=== PATIENT | female | born 1980 | race Caucasian/White ===

== ENCOUNTER 2016-12-11 19:18 | Emergency (ER) | payer MEDICAID, OTHER ==
[2016-12-11 19:29] VITALS: BP 106/71
--- NOTE | 2016-12-11 20:25 | RAD ---
Indication: Right-sided neck pain. 5 views of the cervical spine demonstrates straightening of the normal lordosis. No prevertebral soft tissue swelling is noted. Spinal canal appears to be intact. All the intervertebral foramen appear patent. IMPRESSION: No fracture of the cervical spine is noted.
[2016-12-11] MEDS ORDERED: Cyclobenzaprine TAB* 10 MG PO ONE (20:30)
--- NOTE | 2016-12-11 20:50 | UC ---
Neck Pain HPI - HPI Summary HPI Summary: WENT TO [facility] TODAY AND HAD NECK ADJUSTMENT; PAIN TENDERNESS AND SWELLING IN RIGHT NECK. NO LOC. NO LOSS OF CONTROL OF BLADDER OR BOWELS. NO NUMBNESS OR TINGLING - History of Current Complaint Chief Complaint: UCUpperExtremity Stated Complaint: NECK AND SHOULDER PAIN Time Seen by Provider: 12/11/16 19:28 Hx Obtained From: Patient Mechanism Of Injury: Blunt Trauma Onset/Duration: Sudden Onset, Lasting Hours, Still Present Severity: Moderate Location: Discrete At: - RIGHT PARASPINAL MUSCLES OF C-SPINE Character: Dull, Aching, Stiff, Spasmotic Aggravating Factors: Nothing Alleviating Factors: Nothing Associated Signs & Symptoms: Positive: Negative - Risk Factors Meningitis Risk Factors: Negative - Allergies/Home Medications Allergies/Adverse Reactions: Allergies Allergy/AdvReac Type Severity Reaction Status Date / Time Benzoyl Peroxide Allergy Intermediate Hives Verified 07/11/15 12:44 [place] [facility] Allergy Intermediate serotonin Verified 07/11/15 12:44 [From Vyvanse] syndrome Dexamethasone Allergy Intermediate fluid Verified 07/11/15 12:44 swelling tissue all over Lisdexamfetamine Allergy Intermediate serotonin Verified 07/11/15 12:44 [From Vyvanse] syndrome Penicillins Allergy Intermediate Hives Verified 07/11/15 12:44 Red Dye [From Vyvanse] Allergy Intermediate serotonin Verified 07/11/15 12:44 syndrome Sertraline [From Zoloft] Allergy Intermediate suicidal Verified 07/11/15 12:44 ideation Yellow Dye [From Vyvanse] Allergy Intermediate serotonin Verified 07/11/15 12:44 syndrome PMH/Surg Hx/FS Hx/Imm Hx Previously Healthy: Yes - Surgical History Surgical History: None - Family History Known Family History: Positive: Hypertension - Social History Occupation: Employed Full-time Lives: With Family Alcohol Use: Occasionally Substance Use Type: None Smoking Status (MU): Never Smoked Tobacco Review Of Systems Constitutional: Positive: Negative Skin: Positive: Negative Eyes: Positive: Negative ENT: Positive: Negative Respiratory: Positive: Negative Cardiovascular: Positive: Negative Gastrointestinal: Positive: Negative Genitourinary: Positive: Negative Musculoskeletal: Positive: Arthralgia, Myalgia Neurological: Positive: Negative Psychological: Positive: Negative All Other Systems Reviewed And Are Negative: Yes Physical Exam Triage Information Reviewed: Yes Appearance: Well-Appearing, No Pain Distress, Well-Nourished Vital Signs: Initial Vital Signs Temp 98.3 F 12/11/16 19:26 Pulse 86 12/11/16 19:26 Resp 18 12/11/16 19:26 BP 106/71 12/11/16 19:26 Pulse Ox 100 12/11/16 19:26 Vital Signs Reviewed: Yes Eye Exam: Normal ENT Exam: Normal ENT: Positive: Normal ENT inspection, Hearing grossly normal, Pharynx normal, TMs normal Dental Exam: Normal Neck exam: Normal Neck: Positive: Supple, Nontender, No Lymphadenopathy Respiratory Exam: Normal Respiratory: Positive: Chest non-tender, Lungs clear, Normal breath sounds, No respiratory distress, No accessory muscle use Cardiovascular Exam: Normal Cardiovascular: Positive: RRR, No Murmur, Pulses Normal Abdominal Exam: Normal Abdomen Description: Positive: Nontender, No Organomegaly Musculoskeletal Exam: Normal - RIGHT PARASPINAL MM Musculoskeletal: Positive: Strength Intact, ROM Intact, Edema @, Other: - RIGHT PARASPINAL MUSCLES Neurological Exam: Normal Neurological: Positive: Alert, Muscle Tone Normal Psychological Exam: Normal Psychological: Positive: Normal Response To Family Skin Exam: Normal Skin: Positive: rashes, breakdown Neck Pain Course/Dx - Differential Dx/Diagnosis Differential Dx/HQI/PQRI: Sprain, Strain Provider Diagnoses: CERVICAL STRAIN/SPRAIN Discharge - Discharge Plan Condition: Stable Disposition: HOME Prescriptions: Cyclobenzaprine TAB* [Flexeril 10 MG TAB*] 10 mg PO TID PRN #9 tab PRN Reason: Spasms Patient Education Materials: Cervical Sprain (ED) Referrals: [facility] [Outside] Usha WOODS,Ricki Aranda [Primary Care Provider] - Additional Instructions: PHYSICAL THERAPY REFERRAL: You have been prescribed physical therapy. Treatments may include stretching, exercise, application of heat or cold, and other modalities. After an injury, PT can reduce swelling and pain. In recovery, PT is used to restore mobility and strength. Your specific treatment goals are: ___X__ Reduction of Swelling (EGS, US, ice as needed) ___X__ Pain Reduction (EGS, US, ice as needed) TENS Pack Fitting and Instruction Wound Hydrotherapy ___X__ Preservation of Mobility ___X__ Alevism of Mobility ___X__ Strength Alevism ___X__ Work or Sports Hardening This instruction sheet also serves as your PHYSICAL THERAPY REFERRAL! Please take it with you to the therapist, so he/she will be aware of your diagnosis and treatment plan. You may see the physical therapist of your choice for these treatments, but may wish to check with your insurance to be sure the provider you select is covered. It's important to see the doctor to whom you have been referred for follow up.
== END 2016-12-11 20:52 | disposition home or self-care (01) ==
LOC: UCEAST 19:18
DX: S16.1XXA Strain of muscle, fascia and tendon at neck level, initial encounter (principal); X58.XXXA Exposure to other specified factors, initial encounter; Y93.9 Activity, unspecified; Y92.9 Unspecified place or not applicable; Z88.0 Allergy status to penicillin
CPT/HCPCS: 72050; 99212; A9270-GY; G0463

== ENCOUNTER 2018-03-10 18:10 | Inpatient (IN) | payer MEDICAID, OTHER ==
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
[2018-03-10 19:47] LABS: ABS Basophils 0 10^3/ul (0-0.2); ABS Eosinophils 0.2 10^3/ul (0-0.6); ABS Lymphocytes 1.4 10^3/ul (1.0-4.8); ABS Monocytes 0.5 10^3/ul (0-0.8); ABS Neutrophils 2.8 10^3/ul (1.5-7.7); ABS Nucleated RBC 0 10^3/ul; Eosinophil % 4.4 %; Hematocrit 39 % (35-47); Hemoglobin 13.1 g/dl (12.0-16.0); Lymphocyte % 28.9 %; Mean Corpuscular HGB Conc 34 g/dl (31-36); Mean Corpuscular Hemoglobin 33 pg (27-31); Mean Corpuscular Volume 97 fL (80-97); Mean Platelet Volume 7.7 fL (7.4-10.4); Nucleated Red Blood Cells % 0; Platelet Count 232 10^3/ul (150-450); Red Blood Count 3.98 10^6/ul (4.00-5.40); Red Cell Distribution Width 13 % (10.5-15)
[2018-03-10 20:01] LABS: Urine Appearance Clear; Urine Blood Negative (Negative); Urine Color Yellow; Urine Ketones Negative (Negative); Urine Protein Negative (Negative); Urine Specific Gravity 1.017 (1.010-1.030); Urine Urobilinogen Negative (Negative)
[2018-03-10 20:07] LABS: EGFR Non-African American 83.1 (>60)
[2018-03-10] MEDS ORDERED: LORazepam TAB(*) 1 MG PO ONE (21:01)
[2018-03-10] MEDS ORDERED: clonazePAM TAB(*) 0.5 MG PO ONE (21:01)
[2018-03-10] MEDS ORDERED: diPHENhydraMINE PO* 25 MG ONE (21:07)
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
[2018-03-11] MEDS ORDERED: Ondansetron TAB* 4 MG PO PRN (03:07)
[2018-03-11] MEDS ORDERED: clonazePAM TAB(*) 0.5 MG PO PRN (03:07)
[2018-03-11] MEDS ORDERED: LORazepam TAB(*) 0.5 MG PO PRN (03:07)
[2018-03-11] MEDS ORDERED: Cyclobenzaprine TAB* 10 MG PO PRN (03:07)
[2018-03-11] MEDS ORDERED: Al Hydrox/Mg Hydrox/Simet LIQ* 30 ML UDC PO PRN (04:04)
[2018-03-11] MEDS ORDERED: Acetaminophen TAB* 325 MG PO PRN (04:04)
[2018-03-11] MEDS ORDERED: HYDROQUINONE TOPICAL PRN (06:41)
[2018-03-11] MEDS ORDERED: DULoxetine DR CAP* 30 MG CAP.DR PO SCH (09:00)
[2018-03-11] MEDS ORDERED: Gabapentin CAP(*) 100 MG PO SCH (09:00)
[2018-03-11] MEDS ORDERED: lamoTRIgine TAB(*) 25 MG PO SCH (09:00)
[2018-03-11] MEDS ORDERED: Amphetamine/Dextroamph ER(NF) 10 MG CAP.ER PO SCH (09:00)
[2018-03-11] MEDS: Vitamin THERAPEUTIC TAB PO SCH (11:29)
[2018-03-11] MEDS ORDERED: clonazePAM TAB(*) 0.5 MG ONE (14:06)
[2018-03-11] MEDS ORDERED: clonazePAM TAB(*) 0.5 MG PO ONE (16:15)
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
[2018-03-11] MEDS: clonazePAM TAB(*) 1 MG PO SCH (20:06)
[2018-03-11] MEDS: QUEtiapine TAB* 25 MG PO SCH (20:06)
[2018-03-11] MEDS: lamoTRIgine TAB(*) 25 MG PO SCH (20:06)
[2018-03-11] MEDS: hydrOXYzine HCL TAB* 50 MG PO PRN (23:26)
[2018-03-12] MEDS: Venlafaxine EXT RELEASE CAP* 75 MG PO SCH (07:59)
[2018-03-12] MEDS: clonazePAM TAB(*) 1 MG PO SCH ×2 (08:00→20:06)
[2018-03-12] MEDS: Vitamin THERAPEUTIC TAB PO SCH (08:00)
[2018-03-12] MEDS: lamoTRIgine TAB(*) 25 MG PO SCH ×2 (08:00→20:06)
[2018-03-12] MEDS: hydrOXYzine HCL TAB* 50 MG PO PRN ×2 (13:18→22:53)
[2018-03-12] MEDS: Docusate CAP* 100 MG PO SCH (17:39)
[2018-03-12] MEDS: QUEtiapine TAB* 25 MG PO SCH (20:06)
[2018-03-13] MEDS: lamoTRIgine TAB(*) 25 MG PO SCH ×2 (09:12→19:56)
[2018-03-13] MEDS: Docusate CAP* 100 MG PO SCH (09:13)
[2018-03-13] MEDS: Vitamin THERAPEUTIC TAB PO SCH (09:13)
[2018-03-13] MEDS: clonazePAM TAB(*) 1 MG PO SCH ×2 (09:13→19:56)
[2018-03-13] MEDS: Venlafaxine EXT RELEASE CAP* 75 MG PO SCH (09:13)
[2018-03-13] MEDS ORDERED: LORazepam TAB(*) 1 MG ONE (15:28)
--- NOTE | 2018-03-13 19:20 | PN ---
Subjective - Subjective Date of Service: 03/13/18 Service Type: [id number] Hosp care 15 min low complexity Subjective: Kayleigh had a difficult day in the morning due to what appeared to be withdrawals from Benzos/ Amphetanines, requiring stat Lorazepam. Did fine rest of the day. Objective - Appearance Appearance: Healthy Appearing Dysmorphic Features: No Hygiene: Normal Grooming: Well Kept - Behavior Psychomotor Activities: Normal Exhibits Abnormal Movement: No - Attitude and Relatedness Attitude and Relatedness: Appropriate Eye Contact: Good - Speech Quality: Unpressured Latencies: Normal Quantity: Appropriate - Mood Patient's Decription of Mood: "Terrible" - Affect Observed Affect: Tearful Affect Consistent with: Dysphoria - Thought Process Patient's Thought Process: Coherent, Goal Directed Thought Content: No Passive Wish, No Suicidal Planning, No Homicidal Ideation, No Paranoid Ideation - Sensorium Experiencing Hallucinations: No, Sensorium is Clear Type of Hallucinations: Visual: No, Auditory: No, Command: No - Level of Consciousness Level of Consciousness: Alert Orientation: Yes Intact, Yes Orientated to Time, Yes Orientated to Place, Yes Orientated to Person - Impulse Control Impulse Control: Intact - Insight and Judgement Insight and Judgement: Fair - Group Participation Particating in Group Activities: Yes - Medication Management Medication Management Adherence: Yes Assessment - Assessment Merits Inpatient Hospitalization: For Immediate Safety, For Stabilization, For Ongoing Evaluation Clinical Impression: Still symptomatic and withdrawing from Benzos. Plan - Plan Treatment Plan: Name: KAYLEIGH WEST Birthdate: 1980 [id number] Continued Medication Management: Continue Outpt Medication Medications: Current Medications Acetaminophen (Tylenol Tab*) 650 mg PO Q4H PRN PRN Reason: PAIN or TEMP > 101 F Last Admin: 03/13/18 05:19 Dose: 650 mg Al Hydrox/Mg Hydrox/Simethicone (Maalox Plus*) 30 ml PO Q4H PRN PRN Reason: INDIGESTION Clonazepam (Klonopin Tab(*)) 1 mg PO BID [facility] Last Admin: 03/13/18 09:13 Dose: 1 mg Docusate Sodium (Colace Cap*) 100 mg PO DAILY [facility] Last Admin: 03/13/18 09:13 Dose: 100 mg Hydroxyzine HCl (Atarax Tab*) 50 mg PO Q6H PRN PRN Reason: ANXIETY Last Admin: 03/12/18 22:53 Dose: 50 mg Lamotrigine (Lamictal Tab(*)) 50 mg PO BID [facility] Last Admin: 03/13/18 09:12 Dose: 50 mg Multivitamins (Theragran Tab*) 1 tab PO DAILY [facility] Last Admin: 03/13/18 09:13 Dose: 1 tab Pto:Hydroquinone 4% 1 dose TOPICAL DAILY PRN PRN Reason: SKIN CLARITY Ondansetron HCl (Zofran Tab*) 4 mg PO Q8H PRN PRN Reason: NAUSEA/VOMITING Quetiapine Fumarate (Seroquel Tab*) 50 mg PO BEDTIME [facility] Last Admin: 03/12/18 20:06 Dose: 50 mg Venlafaxine HCl (Effexor Xr Cap*) 150 mg PO DAILY [facility] Last Admin: 03/13/18 09:13 Dose: 150 mg - Discharge Plan Discharge Plan: Outpatient Follow Up Outpatient Program: [facility]
[2018-03-13] MEDS: QUEtiapine TAB* 25 MG PO SCH (19:56)
[2018-03-13] MEDS: hydrOXYzine HCL TAB* 50 MG PO PRN (21:32)
[2018-03-14] MEDS: hydrOXYzine HCL TAB* 50 MG PO PRN ×2 (03:55→13:11)
[2018-03-14] MEDS: lamoTRIgine TAB(*) 25 MG PO SCH ×2 (08:46→20:40)
[2018-03-14] MEDS: Venlafaxine EXT RELEASE CAP* 75 MG PO SCH (08:46)
[2018-03-14] MEDS: Docusate CAP* 100 MG PO SCH (08:46)
[2018-03-14] MEDS: Vitamin THERAPEUTIC TAB PO SCH (08:46)
[2018-03-14] MEDS: clonazePAM TAB(*) 1 MG PO SCH ×2 (08:46→20:39)
--- NOTE | 2018-03-14 12:49 | PN ---
Subjective - Subjective Date of Service: 03/14/18 Service Type: [id number] Hosp care 15 min low complexity Subjective: Patient was seen by self, discussed with treatment team, chart was reviewed. Patient has been compliant with her medications, no reported side effects. Patient reports some improvement in her symptoms of anxiety and mood. Patient reports less irritability and less hyperactive. Patient sleeping has been disturbed with middle insomnia and has been doing better with falling a sleep on Seroquel. Patient eating has been fair. Patient has been participating in the milieu and interacting with peers on the unit. Patient has been cooperative with staff and attending selective groups and interested in anger management. Patient behavior has been in control at the hospital but unsure about how if she was to handle some of these distress at home. Patient mood was less anxious and reports improvement in racing thoughts. Patient has been reporting no suicidal or homicidal ideation. No psychotic symptoms of delusions or hallucinations. Objective - Appearance Appearance: Healthy Appearing Dysmorphic Features: No Hygiene: Normal Grooming: Fairly Well Kept - Behavior Psychomotor Activities: Normal Exhibits Abnormal Movement: No - Attitude and Relatedness Attitude and Relatedness: Cooperative Eye Contact: Fair - Speech Quality: Unpressured Latencies: Normal Quantity: Appropriate - Mood Patient's Decription of Mood: "Irritable" - less - Affect Observed Affect: Fair Affect Consistent with: Euthymia - with some anxiety - Thought Process Patient's Thought Process: Coherent Thought Content: No Passive Wish, No Suicidal Planning, No Homicidal Ideation, No Paranoid Ideation - Sensorium Experiencing Hallucinations: No, Sensorium is Clear Type of Hallucinations: Visual: No, Auditory: No, Command: No - Level of Consciousness Level of Consciousness: Alert Orientation: Yes Intact, Yes Orientated to Time, Yes Orientated to Place, Yes Orientated to Person - Impulse Control Impulse Control: Intact - Insight and Judgement Insight and Judgement: Fair - Group Participation Particating in Group Activities: Yes - Medication Management Medication Management Adherence: Yes Assessment - Assessment Merits Inpatient Hospitalization: For Immediate Safety, For Stabilization, For Discharge Planning Inpatient DSM-V Dx: F31.9 Clinical Impression: Still symptomatic and withdrawing from Benzos. MHU: Problem List - Patient Problems (1) Bipolar disorder Current Visit: Yes Status: Acute (2) Anxiety disorder Current Visit: Yes Status: Acute Code(s): F41.9 - ANXIETY DISORDER, UNSPECIFIED SNOMED Code(s): 663933627 (3) Cannabis abuse Current Visit: Yes Status: Acute Code(s): F12.10 - CANNABIS ABUSE, UNCOMPLICATED SNOMED Code(s): 29344844 Plan - Plan Treatment Plan: Name: KAYLEIGH WEST Birthdate: 1980 [id number] - Patient continues to be hospitalized due to recent suicidal thoughts with plan , mood instability, anxiety and impulsivity. - Patient's medications were adjusted after informed consent with increment in Seroquel to help with sleep disturbance and help with augmentation of mood stabilizer. Patient Lamictal will be increased to 100 mg BID from tomorrow night. Patient will continued with Clonazepam 1mg BID for now with plan to down titrate as tolerated in future. Patient to use Hydroxyzine PRN for anxiety. Patient's Effexor XR to be continued at 150 mg PO QAM. - Patient will be monitored for improvement and side effects. Risk and benefits were discussed. - Patient was encouraged to continue his participation in the milieu, group and individual therapy. Medications: Current Medications Acetaminophen (Tylenol Tab*) 650 mg PO Q4H PRN PRN Reason: PAIN or TEMP > 101 F Last Admin: 03/13/18 05:19 Dose: 650 mg Al Hydrox/Mg Hydrox/Simethicone (Maalox Plus*) 30 ml PO Q4H PRN PRN Reason: INDIGESTION Clonazepam (Klonopin Tab(*)) 1 mg PO BID [facility] Last Admin: 03/14/18 08:46 Dose: 1 mg Docusate Sodium (Colace Cap*) 100 mg PO DAILY [facility] Last Admin: 03/14/18 08:46 Dose: 100 mg Hydroxyzine HCl (Atarax Tab*) 50 mg PO Q6H PRN PRN Reason: ANXIETY Last Admin: 03/14/18 03:55 Dose: 50 mg Lamotrigine (Lamictal Tab(*)) 50 mg PO BID [facility] Last Admin: 03/14/18 08:46 Dose: 50 mg Multivitamins (Theragran Tab*) 1 tab PO DAILY [facility] Last Admin: 03/14/18 08:46 Dose: 1 tab Pto:Hydroquinone 4% 1 dose TOPICAL DAILY PRN PRN Reason: SKIN CLARITY Ondansetron HCl (Zofran Tab*) 4 mg PO Q8H PRN PRN Reason: NAUSEA/VOMITING Quetiapine Fumarate (Seroquel Tab*) 100 mg PO BEDTIME [facility] Venlafaxine HCl (Effexor Xr Cap*) 150 mg PO DAILY [facility] Last Admin: 03/14/18 08:46 Dose: 150 mg
[2018-03-14] MEDS ORDERED: QUEtiapine TAB* 100 MG PO SCH (21:00)
[2018-03-14] MEDS ORDERED: Nicotine GUM* 2 MG PO PRN (22:04)
[2018-03-14] MEDS: Nicotine Inhaler* 10 MG AMP INH PRN (22:24)
[2018-03-14] MEDS ORDERED: Mouth Piece, Nicotine* 1 EACH CARTRIDGE INH ONE (23:00)
[2018-03-15] MEDS: hydrOXYzine HCL TAB* 50 MG PO PRN ×3 (02:06→19:57)
[2018-03-15] MEDS: Vitamin THERAPEUTIC TAB PO SCH (09:02)
[2018-03-15] MEDS: clonazePAM TAB(*) 1 MG PO SCH ×2 (09:02→19:01)
[2018-03-15] MEDS: Docusate CAP* 100 MG PO SCH (09:02)
[2018-03-15] MEDS: Venlafaxine EXT RELEASE CAP* 75 MG PO SCH (09:02)
[2018-03-15] MEDS: lamoTRIgine TAB(*) 25 MG PO SCH (09:02)
--- NOTE | 2018-03-15 12:07 | PN ---
Subjective - Subjective Date of Service: 03/15/18 Service Type: [id number] Hosp care 15 min low complexity Subjective: Patient was seen by self, discussed with treatment team, chart was reviewed. Patient has been compliant with her medications, no reported side effects. Patient reports difficulty last evening regulating her emotions and mood when did not get belongings what she requested from her fiance. Patient engaged in self injurious behavior by cutting her wrist with piece of plastic and her observation was switch back to Q15 minutes. Patient's SANDEEP was suggestive of severe anxiety likely related to her PTSD. Patient depression was mild on Oconnell Depression inventory. But reports intense mood instability, which worsened when exposed to an unexpected situation. Patient reports investing time in therapy and groups to learn skills to manage distress and work on mindfulness. Patient reports disturbed sleep last night. Patient eating has been fair. Patient has been participating in the milieu and interacting with peers on the unit. Patient has been cooperative with staff and attending selective groups and interested in anger management. Patient behavior was safe on all checks after that incident. Patient has been reporting no suicidal or homicidal ideation. No psychotic symptoms of delusions or hallucinations. Objective - Appearance Appearance: Healthy Appearing Dysmorphic Features: No Hygiene: Normal Grooming: Fairly Well Kept - Behavior Psychomotor Activities: Normal Exhibits Abnormal Movement: No - Attitude and Relatedness Attitude and Relatedness: Cooperative Eye Contact: Fair - Speech Quality: Unpressured Quantity: Appropriate - Mood Patient's Decription of Mood: "Sad" - Affect Observed Affect: Labile - less Affect Consistent with: Dysphoria - Thought Process Patient's Thought Process: Coherent Thought Content: No Passive Wish, No Suicidal Planning, No Homicidal Ideation, No Paranoid Ideation - Sensorium Experiencing Hallucinations: No, Sensorium is Clear Type of Hallucinations: Visual: No, Auditory: No, Command: No - Level of Consciousness Level of Consciousness: Alert Orientation: Yes Intact, Yes Orientated to Time, Yes Orientated to Place, Yes Orientated to Person - Impulse Control Impulse Control: Poor - as per recent evidence - Insight and Judgement Insight and Judgement: Fair - Group Participation Particating in Group Activities: Yes - Medication Management Medication Management Adherence: Yes Assessment - Assessment Merits Inpatient Hospitalization: For Immediate Safety, For Stabilization, For Discharge Planning Inpatient DSM-V Dx: F31.9 Clinical Impression: Still symptomatic and withdrawing from Benzos. MHU: Problem List - Patient Problems (1) Bipolar disorder Current Visit: Yes Status: Acute (2) Anxiety disorder Current Visit: Yes Status: Acute Code(s): F41.9 - ANXIETY DISORDER, UNSPECIFIED SNOMED Code(s): 251326694 (3) Cannabis abuse Current Visit: Yes Status: Acute Code(s): F12.10 - CANNABIS ABUSE, UNCOMPLICATED SNOMED Code(s): 88850868 Plan - Plan Treatment Plan: Name: KAYLIEGH WEST Birthdate: 1980 [id number] - Patient continues to be hospitalized due to recent suicidal thoughts with plan , mood instability, anxiety and impulsivity. - Patient's medications were adjusted with increment in Lamictal to 100 mg BID. Patient will continued with Clonazepam 1mg BID for now with plan to down titrate as tolerated in future. Patient to use Hydroxyzine PRN for anxiety. Patient's Effexor XR to be continued at 150 mg PO QAM. Patient Seroquel was switched to XR 100 mg at 1800. - Patient will be monitored for improvement and side effects. Risk and benefits were discussed. - Patient was encouraged to continue his participation in the milieu, group and individual therapy. Medications: Current Medications Acetaminophen (Tylenol Tab*) 650 mg PO Q4H PRN PRN Reason: PAIN or TEMP > 101 F Last Admin: 03/13/18 05:19 Dose: 650 mg Al Hydrox/Mg Hydrox/Simethicone (Maalox Plus*) 30 ml PO Q4H PRN PRN Reason: INDIGESTION Clonazepam (Klonopin Tab(*)) 1 mg PO BID [facility] Last Admin: 03/15/18 09:02 Dose: 1 mg Docusate Sodium (Colace Cap*) 100 mg PO DAILY [facility] Last Admin: 03/15/18 09:02 Dose: 100 mg Hydroxyzine HCl (Atarax Tab*) 50 mg PO Q6H PRN PRN Reason: ANXIETY Last Admin: 03/15/18 02:06 Dose: 50 mg Lamotrigine (Lamictal Tab(*)) 100 mg PO 0900,1800 [facility] Multivitamins (Theragran Tab*) 1 tab PO DAILY [facility] Last Admin: 03/15/18 09:02 Dose: 1 tab Nicotine (Nicotine Inhaler*) 10 mg INH Q2H PRN PRN Reason: CRAVINGS Last Admin: 03/14/18 22:24 Dose: 10 mg Nicotine Polacrilex (Nicotine Gum*) 2 mg PO Q2H PRN PRN Reason: CRAVINGS Last Admin: 03/14/18 22:24 Dose: 2 mg Pto:Hydroquinone 4% 1 dose TOPICAL DAILY PRN PRN Reason: SKIN CLARITY Ondansetron HCl (Zofran Tab*) 4 mg PO Q8H PRN PRN Reason: NAUSEA/VOMITING Quetiapine Fumarate (Seroquel Xr Tab*) 100 mg PO 1800 [facility] Venlafaxine HCl (Effexor Xr Cap*) 150 mg PO DAILY [facility] Last Admin: 03/15/18 09:02 Dose: 150 mg
[2018-03-15] MEDS ORDERED: QUEtiapine XR TAB* 50 MG PO SCH (18:00)
[2018-03-15] MEDS ORDERED: lamoTRIgine TAB(*) 100 MG PO SCH (18:00)
[2018-03-15] MEDS: lamoTRIgine TAB(*) 100 MG PO SCH (19:02)
[2018-03-15] MEDS ORDERED: lamoTRIgine TAB(*) 25 MG PO SCH (21:00)
[2018-03-15] MEDS: Nicotine Inhaler* 10 MG AMP INH PRN (22:05)
[2018-03-15] MEDS ORDERED: QUEtiapine TAB* 25 MG PO ONE (22:30)
[2018-03-16] MEDS: hydrOXYzine HCL TAB* 50 MG PO PRN ×3 (03:07→21:15)
[2018-03-16] MEDS: Venlafaxine EXT RELEASE CAP* 75 MG PO SCH (08:49)
[2018-03-16] MEDS: clonazePAM TAB(*) 1 MG PO SCH ×2 (08:50→20:11)
[2018-03-16] MEDS: Docusate CAP* 100 MG PO SCH (08:50)
[2018-03-16] MEDS: lamoTRIgine TAB(*) 100 MG PO SCH ×2 (08:50→20:16)
[2018-03-16] MEDS: Vitamin THERAPEUTIC TAB PO SCH (08:50)
--- NOTE | 2018-03-16 13:22 | PN ---
Subjective - Subjective Date of Service: 03/16/18 Service Type: [id number] Hosp care 15 min low complexity Subjective: Patient was seen by self, discussed with treatment team, chart was reviewed. Patient has been compliant with her medications, no reported side effects. Patient reports difficulty last evening regulating her emotions around a situation regarding maintaining boundaries with other patients. Patient reports better mood stability with Seroquel and Lamictal this morning. But patient had difficulty falling asleep and staying a sleep and required extra dose of Seroquel immediate release to help with that. Patient reports investing time and effort in therapy and groups to learn skills to manage distress and work on mindfulness. Patient eating has been fair. Patient has been participating in the milieu and interacting with peers on the unit. Patient behavior was safe on all checks. Patient has been reporting no suicidal or homicidal ideation. No psychotic symptoms of delusions or hallucinations. Objective - Appearance Appearance: Healthy Appearing Dysmorphic Features: No Hygiene: Normal Grooming: Fairly Well Kept - Behavior Psychomotor Activities: Normal Exhibits Abnormal Movement: No - Attitude and Relatedness Attitude and Relatedness: Cooperative Eye Contact: Fair - Speech Quality: Unpressured Latencies: Normal Quantity: Terse - Mood Patient's Decription of Mood: "Okay" - Affect Observed Affect: Fair Affect Consistent with: Dysphoria - less - Thought Process Patient's Thought Process: Coherent, Circumstantial Thought Content: No Passive Wish, No Suicidal Planning, No Homicidal Ideation, No Paranoid Ideation - Sensorium Experiencing Hallucinations: No, Sensorium is Clear Type of Hallucinations: Visual: No, Auditory: No, Command: No - Level of Consciousness Level of Consciousness: Alert Orientation: Yes Intact, Yes Orientated to Time, Yes Orientated to Place, Yes Orientated to Person - Impulse Control Impulse Control: Intact - Insight and Judgement Insight and Judgement: Fair - Group Participation Particating in Group Activities: Yes - Medication Management Medication Management Adherence: Yes Assessment - Assessment Merits Inpatient Hospitalization: For Immediate Safety, For Stabilization, For Discharge Planning Inpatient DSM-V Dx: F31.9 Clinical Impression: Still symptomatic and withdrawing from Benzos. MHU: Problem List - Patient Problems (1) Bipolar disorder Current Visit: Yes Status: Acute (2) Anxiety disorder Current Visit: Yes Status: Acute Code(s): F41.9 - ANXIETY DISORDER, UNSPECIFIED SNOMED Code(s): 888843460 (3) Cannabis abuse Current Visit: Yes Status: Acute Code(s): F12.10 - CANNABIS ABUSE, UNCOMPLICATED SNOMED Code(s): 74571791 Plan - Plan Treatment Plan: Name: KAYLEIGH WEST Birthdate: 1980 [id number] - Patient continues to be hospitalized due to recent suicidal thoughts with plan , mood instability, anxiety and impulsivity. - Patient's medications were continued with Lamictal at 100 mg BID. Patient's Clonazepam was reduced to 0.5 mg BID with plan to down titrate as tolerated in future. Patient to use Hydroxyzine PRN for anxiety. Patient's Effexor XR to be reduced to 112.5 mg PO QAM. Patient Seroquel was switched to immediate release and increased to 150 mg PO At Bedtime. - Patient will be monitored for improvement and side effects. Risk and benefits were discussed. - Patient was encouraged to continue his participation in the milieu, group and individual therapy. Medications: Current Medications Acetaminophen (Tylenol Tab*) 650 mg PO Q4H PRN PRN Reason: PAIN or TEMP > 101 F Last Admin: 03/13/18 05:19 Dose: 650 mg Al Hydrox/Mg Hydrox/Simethicone (Maalox Plus*) 30 ml PO Q4H PRN PRN Reason: INDIGESTION Clonazepam (Klonopin Tab(*)) 0.5 mg PO BID [facility] Docusate Sodium (Colace Cap*) 100 mg PO DAILY [facility] Last Admin: 03/16/18 08:50 Dose: 100 mg Hydroxyzine HCl (Atarax Tab*) 50 mg PO Q6H PRN PRN Reason: ANXIETY Last Admin: 03/16/18 03:07 Dose: 50 mg Lamotrigine (Lamictal Tab(*)) 100 mg PO BID [facility] Multivitamins (Theragran Tab*) 1 tab PO DAILY [facility] Last Admin: 03/16/18 08:50 Dose: 1 tab Nicotine (Nicotine Inhaler*) 10 mg INH Q2H PRN PRN Reason: CRAVINGS Last Admin: 03/15/18 22:05 Dose: 10 mg Nicotine Polacrilex (Nicotine Gum*) 2 mg PO Q2H PRN PRN Reason: CRAVINGS Last Admin: 03/14/18 22:24 Dose: 2 mg Pto:Hydroquinone 4% 1 dose TOPICAL DAILY PRN PRN Reason: SKIN CLARITY Ondansetron HCl (Zofran Tab*) 4 mg PO Q8H PRN PRN Reason: NAUSEA/VOMITING Quetiapine Fumarate (Seroquel Tab*) 150 mg PO BEDTIME [facility] Venlafaxine HCl (Effexor Xr Cap*) 112.5 mg PO DAILY [facility]
[2018-03-16] MEDS ORDERED: Mouth Piece, Nicotine* 1 EACH CARTRIDGE ONE (14:29)
[2018-03-16] MEDS: Nicotine Inhaler* 10 MG AMP INH PRN (14:30)
[2018-03-16] MEDS ORDERED: QUEtiapine TAB* 100 MG PO SCH (21:00)
[2018-03-17] MEDS: hydrOXYzine HCL TAB* 50 MG PO PRN ×2 (02:20→12:37)
[2018-03-17 08:17] VITALS: BP 130/69
[2018-03-17] MEDS: Docusate CAP* 100 MG PO SCH (08:45)
[2018-03-17] MEDS: clonazePAM TAB(*) 1 MG PO SCH (08:45)
[2018-03-17] MEDS: Vitamin THERAPEUTIC TAB PO SCH (08:45)
[2018-03-17] MEDS: lamoTRIgine TAB(*) 100 MG PO SCH (08:45)
[2018-03-17] MEDS ORDERED: Venlafaxine EXT RELEASE CAP* 37.5 MG PO SCH (09:00)
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
== END 2018-03-17 13:55 | disposition home or self-care (01) | DRG 885 ==
LOC: ED 18:10 → BSU 03-11 03:00
PROVIDERS: ADMIT Psychiatry & Neurology Psychiatry; ATTEND Psychiatry & Neurology Psychiatry
DX: F31.9 Bipolar disorder, unspecified (principal); R45.851 Suicidal ideations; F12.10 Cannabis abuse, uncomplicated; F41.1 Generalized anxiety disorder; F98.8 Other specified behavioral and emotional disorders with onset usually occurring in childhood and adolescence; G47.00 Insomnia, unspecified; F43.10 Post-traumatic stress disorder, unspecified; Z88.8 Allergy status to other drugs, medicaments and biological substances; Z91.041 Radiographic dye allergy status; Z88.0 Allergy status to penicillin; Z91.419 Personal history of unspecified adult abuse; Z90.710 Acquired absence of both cervix and uterus; Z91.5 Personal history of self-harm; Z82.49 Family history of ischemic heart disease and other diseases of the circulatory system; Z86.14 Personal history of Methicillin resistant Staphylococcus aureus infection; Z91.410 Personal history of adult physical and sexual abuse; Z72.89 Other problems related to lifestyle; Z81.8 Family history of other mental and behavioral disorders; Z81.1 Family history of alcohol abuse and dependence
CPT/HCPCS: 36415; 80053; 80061; 80307; 80320; 80329; 81003; 84443; 84702; 85025; 99222; 99231; 99238; 99285; A9270-GY; G0480

== ENCOUNTER 2018-06-02 12:34 | Emergency (ER) | payer OTHER ==
[2018-06-02 12:52] VITALS: BP 108/75
--- NOTE | 2018-06-02 12:54 | UC ---
Abdominal Pain Female HPI - HPI Summary HPI Summary: 37 yo female presents with abdominal pain. She tells me that 2 days ago she woke up in the middle of the night with generalized abdominal pain and nausea. Vomited once and a little felt better. She took tums and anther OTC anti-nausea medication which did not change her symptoms. She continued about her day and developed diarrhea - the pain slowly improved. Yesterday the pain returned was more centralized around her belly button. She has had a decreased appetite and nausea. Last night had a low grade fever of around 100.2F all night - eventually her pain was severe in her RLQ. This morning her pain is not as bad at rest, but is worse with movement or touching the area. She has vomited two or three times today. PMHx of anxiety, depression, and PTSD. She has had a hysterectomy, but still has her appendix. No more fever today. Denies SOB, chest pain, dysuria, vaginal bleeding or discharge. - History of Current Complaint Chief Complaint: UCAbdominalPain Stated Complaint: ABD PAIN Time Seen by Provider: 06/02/18 12:54 Hx Obtained From: Patient Hx Last Menstrual Period: hyster Onset/Duration: Sudden Onset Severity Initially: Severe Severity Currently: Moderate Pain Intensity: 6 Pain Scale Used: 0-10 Numeric Location: Discrete At: RLQ Allergies/Adverse Reactions: Allergies Allergy/AdvReac Type Severity Reaction Status Date / Time atomoxetine [From Strattera] Allergy Insomnia Verified 03/10/18 18:20 benzoyl peroxide Allergy Swelling Verified 03/10/18 18:20 Of Face,Lips,& Throat dexamethasone Allergy See Comment Verified 03/10/18 18:20 lisdexamfetamine Allergy Unknown Verified 03/10/18 18:20 [From Vyvanse] Reaction Details Penicillins Allergy Anaphylatic Verified 03/10/18 18:20 Shock sertraline [From Zoloft] Allergy See Comment Verified 03/10/18 18:20 Iodinated Contrast- Oral and AdvReac Diarrhea Verified 03/12/18 14:21 IV Dye iv contrast dye AdvReac Diarrhea Uncoded 03/12/18 14:21 PMH/Surg Hx/FS Hx/Imm Hx Psychological History: Anxiety, Depression, Post Traumatic Stress Disorder - Surgical History Surgical History: Yes Surgery Procedure, Year, and Place: Hysterectomy- 2017 right shoulder surg mixed connective tissue disease adhd bipolar 1 disorder - Family History Known Family History: Positive: Cardiac Disease - CAD , Hypertension - Social History Occupation: Employed Full-time Lives: With Family Alcohol Use: Daily Alcohol Amount: 1 beer Substance Use Type: None Smoking Status (MU): Never Smoked Tobacco - Immunization History Most Recent Influenza Vaccination: unknown Most Recent Pneumonia Vaccination: never Review of Systems All Other Systems Reviewed And Are Negative: Yes Constitutional: Positive: Fever Skin: Positive: Negative Eyes: Positive: Negative ENT: Positive: Negative Respiratory: Positive: Negative Cardiovascular: Positive: Negative Gastrointestinal: Positive: Abdominal Pain, Vomiting, Diarrhea, Nausea Genitourinary: Positive: Negative Neurovascular: Positive: Negative Neurological: Positive: Negative Psychological: Positive: Negative Physical Exam - Summary Physical Exam Summary: GENERAL: NAD. WDWN. No pain distress. SKIN: No rashes, sores, lesions, or open wounds. NECK: Supple. Nontender. No lymphadenopathy. CHEST: CTAB. No r/r/w. No accessory muscle use. Breathing comfortably and in no distress. CV: RRR. Without m/r/g. Pulses intact. Cap refill <2seconds ABDOMEN: Moderate TTP RLQ. Positive rovsing's. Positive obturator and psoas. No distention or guarding. No CVA tenderness. Bowel sounds present NEURO: Alert. PSYCH: Age appropriate behavior. Triage Information Reviewed: Yes Vital Signs: Initial Vital Signs Temp 98 F 06/02/18 12:49 Pulse 92 06/02/18 12:49 Resp 18 06/02/18 12:49 BP 108/75 06/02/18 12:49 Pulse Ox 100 06/02/18 12:49 Laboratory Tests 06/02/18 06/02/18 13:05 13:07 POC Urine Color Dark yellow POC Urine Clarity Clear POC Urine pH 6.5 POC Ur Specif [place] 1.025 POC Urine Protein 1+ A POC Ur Glucose (UA) Negative POC Urine Ketones Trace A POC Urine Blood Trace-intact A POC Urine Nitrite Negative POC Urine Bilirubin Negative POC Urine Urobilinogen 0.2 POC U Leukocyte Esteras Negative POC Ur Test Negative Vital Signs Reviewed: Yes Abd Pain Female Course/Dx - Course Course Of Treatment: Discussed with pt that her clinical history and exam today are very suggestive of appendicitis and I strongly recommended going to the ED for a work-up. She did not want to do this as she doesn't want to wait hours and then have nothing be wrong and is requesting we do a workup here. I explained to her that a non-contrast CT and ultrasound without labwork will likely be inconclusive and is a sub-optimal evaluation of her condition. She continued to refuse going to the ED and requested that we perform a work up in the . Given this, an ultrasound of her appendix was ordered to avoid likely exposure to a CT here and then later at the ED. US: IMPRESSION: THE APPENDIX IS IDENTIFIED AND IS SLIGHTLY DILATED, WITHOUT PERIAPPENDICEAL INFLAMMATORY. CHANGE. THIS IS CONSIDERED AN INDETERMINATE, BUT LIKELY NEGATIVE STUDY WITH RESPECT TO THE. ACUTE APPENDICITIS. IF SYMPTOMS PERSIST, RECOMMEND REPEAT IMAGING OR CONSIDERATION OF. FURTHER EVALUATION WITH CONTRAST ENHANCED CT OF THE ABDOMEN AND PELVIS. Discussed results with the patient and, again, strongly recommended going to the ED. Now she was agreeable to this and will drive herself. - Differential Dx/Diagnosis Provider Diagnosis: RLQ abdominal pain, Fever, Vomiting Discharge - Sign-Out/Discharge Documenting (check all that apply): Patient Departure All imaging exams completed and their final reports reviewed: Yes - Discharge Plan Condition: Stable Disposition: HOME-RECOMMEND TO ED Referrals: Usha WOODS,Ricki Aranda [Primary Care Provider] - Additional Instructions: Please go to the ER for your abdominal pain. Your ultrasound here was indeterminate for appendicitis, but your exam and clinical symptoms support a diagnosis of appendicitis. - Billing Disposition and Condition Condition: STABLE Disposition: Home-Recommend to ED - Attestation Statements Provider Attestation: I was available for consult. This patient was seen by the SHAD. The patient was not presented to, seen by, or examined by me. -Preet
== END 2018-06-02 15:05 | disposition home health service (06) ==
LOC: UCEAST 12:34
DX: R10.31 Right lower quadrant pain (principal); R50.9 Fever, unspecified; R11.10 Vomiting, unspecified; Z88.0 Allergy status to penicillin; Z91.041 Radiographic dye allergy status; Z88.8 Allergy status to other drugs, medicaments and biological substances; Z90.710 Acquired absence of both cervix and uterus
CPT/HCPCS: 76705; 81003; 84702; 99212; G0463

== ENCOUNTER 2018-06-02 15:43 | Emergency (ER) | payer OTHER ==
[2018-06-02 18:05] LABS: ABS Basophils 0 10^3/ul (0-0.2); ABS Eosinophils 0.1 10^3/ul (0-0.6); ABS Lymphocytes 1.8 10^3/ul (1.0-4.8); ABS Monocytes 0.4 10^3/ul (0-0.8); ABS Neutrophils 2.3 10^3/ul (1.5-7.7); ABS Nucleated RBC 0 10^3/ul; Eosinophil % 3.2 %; Hematocrit 39 % (35-47); Hemoglobin 13.1 g/dl (12.0-16.0); Lymphocyte % 38.2 %; Mean Corpuscular HGB Conc 34 g/dl (31-36); Mean Corpuscular Hemoglobin 32 pg (27-31); Mean Corpuscular Volume 96 fL (80-97); Mean Platelet Volume 8.1 fL (7.4-10.4); Nucleated Red Blood Cells % 0; Platelet Count 223 10^3/ul (150-450); Red Blood Count 4.05 10^6/ul (4.00-5.40); Red Cell Distribution Width 14 % (10.5-15); White Blood Count 4.7 10^3/ul (3.5-10.8)
[2018-06-02 18:25] LABS: Activated Partial Thrombo Time 33.3 seconds (26.0-36.3); INR 1.05 (0.77-1.02)
[2018-06-02 18:29] LABS: ALT 15 U/L (7-52); AST 19 U/L (13-39); Albumin 4.8 g/dL (3.2-5.2); Albumin/Globulin Ratio 1.7 (1-3); Alkaline Phosphatase 35 U/L (34-104); Amylase 54 U/L (29-103); Anion Gap 7 mmol/L (2-11); BUN/Creatinine Ratio 17.4 (8-20); Blood Urea Nitrogen 15 mg/dL (6-24); C Reactive Protein 56.32 mg/L (<8.01); CO2 Carbon Dioxide 30 mmol/L (22-32); Calcium 9.5 mg/dL (8.6-10.3); Chloride 102 mmol/L (101-111); Creatine Kinase 77 U/L (10-223); EGFR African American 89.8 (>60); EGFR Non-African American 74.2 (>60); Globulin 2.8 g/dL (2-4); Glucose 80 mg/dL (70-100); Potassium 3.8 mmol/L (3.5-5.0); Sodium 139 mmol/L (135-145); Total Protein 7.6 g/dL (6.4-8.9)
[2018-06-02 18:34] LABS: HCG Pregnancy < 0.60 mIU/mL
[2018-06-02] MEDS ORDERED: Ondansetron ODT TAB* 4 MG PO ONE ×2 (21:15→22:00)
--- NOTE | 2018-06-02 21:55 | ED ---
Abdominal Pain/Female - HPI Summary HPI Summary: This patient is a 37 year old female presenting to [facility] accompanied by significant other with a chief complaint of abd pain since 2 days ago. Patient states that the pain started around 3 days ago and has gotten progressively worse, hitting its peak yesterday and easing down today. Patient states that she first noticed that she wasnt very hungry and had noticeable lack of appetite. Then, she was woken up in the middle of the night by a searing pain, starting on her left side and radiating to her right. OTC pain medication provided no relief. Until yesterday, the pain has moved to her RLQ and patient feels pain whenever she clenches her abd muscles. The pain is rated 6/10 in severity. Symptoms aggravated by nothing. Symptoms alleviated by nothing. Patient additionally reports chills, diaphoresis, nausea, vomiting. - History of Current Complaint Chief Complaint: EDAbdPain Stated Complaint: AB PAIN Hx Obtained From: Patient Hx Last Menstrual Period: hyster Onset/Duration: Lasting Days, Still Present Timing: Constant Severity Initially: Moderate Severity Currently: Moderate Pain Intensity: 6 Pain Scale Used: 0-10 Numeric Location: Discrete At: RLQ Character: Sharp Aggravating Factor(s): Nothing Alleviating Factor(s): Nothing Associated Signs and Symptoms: Positive: Other: - chills, diaphoresis, nausea, vomiting Allergies/Adverse Reactions: Allergies Allergy/AdvReac Type Severity Reaction Status Date / Time atomoxetine [From Strattera] Allergy Insomnia Verified 03/10/18 18:20 benzoyl peroxide Allergy Swelling Verified 03/10/18 18:20 Of Face,Lips,& Throat dexamethasone Allergy See Comment Verified 03/10/18 18:20 lisdexamfetamine Allergy Unknown Verified 03/10/18 18:20 [From Vyvanse] Reaction Details Penicillins Allergy Anaphylatic Verified 03/10/18 18:20 Shock sertraline [From Zoloft] Allergy See Comment Verified 03/10/18 18:20 Iodinated Contrast- Oral and AdvReac Diarrhea Verified 03/12/18 14:21 IV Dye iv contrast dye AdvReac Diarrhea Uncoded 03/12/18 14:21 PMH/Surg Hx/FS Hx/Imm Hx Previously Healthy: No Endocrine/Hematology History: Denies: Hx Diabetes Cardiovascular History: Denies: Hx Hypercholesterolemia, Hx Hypertension Musculoskeletal History: Reports: Hx Arthritis, Hx Fibromyalgia, Other Musculoskeletal History - joint pain, diffuse arthralgia, mixed connective tissue disorder Sensory History: Reports: Hx Contacts or Glasses Denies: Hx Hearing Aid Opthamlomology History: Reports: Hx Contacts or Glasses Neurological History: Reports: Hx Headaches Psychiatric History: Reports: Hx Anxiety, Hx Attention Deficit Hyperactivity Disorder, Hx Post Traumatic Stress Disorder, Hx Inpatient Treatment, Hx Community Mental Health Tx, Hx Bipolar Disorder, Hx Suicide Attempt, Hx Substance Abuse, Other Psychiatric Issues/Disorders - Mood disorders - Cancer History Cancer Type, Location and Year: None reported - Surgical History Surgery Procedure, Year, and Place: Hysterectomy- 2017 right shoulder surg mixed connective tissue disease adhd bipolar 1 disorder Infectious Disease History: No Infectious Disease History: Reports: 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 Negative: Fever Positive: Abdominal Pain, Vomiting, Nausea All Other Systems Reviewed And Are Negative: Yes Physical Exam - Summary Physical Exam Summary: Appearance: Well-appearing, Well-nourished, lying in bed comfortably Skin: Warm, dry, no obvious rash Eyes: sclera anicteric, no conjunctival pallor ENT: mucous membranes moist, pharynx appears normal Neck: Supple, nontender Respiratory: Clear to auscultation, no signs of respiratory distress Cardiovascular: Normal S1, S2. No murmurs. Normal distal pulses in tibial and radial bilaterally. Abdomen: RLQ tenderness, no peritoneal sign Musculoskeletal: Normal, Strength/ROM Intact Neurological: A&Ox3, awake and alert, mentation is normal, speech is fluent and appropriate Psychiatric: affect is normal, does not appear anxious or depressed Triage Information Reviewed: Yes Vital Signs On Initial Exam: Initial Vitals Temp Pulse Resp BP Pulse Ox 97.8 F 89 14 125/85 100 06/02/18 15:47 06/02/18 15:47 06/02/18 15:47 06/02/18 15:47 06/02/18 15:47 Vital Signs Reviewed: Yes Diagnostics - Vital Signs Vital Signs Temp Pulse Resp BP Pulse Ox 06/02/18 19:30 98.9 F 86 16 119/85 100 06/02/18 17:45 99.5 F 82 20 123/76 97 06/02/18 15:47 97.8 F 89 14 125/85 100 - Laboratory Lab Results: Lab Results 06/02/18 06/02/18 06/02/18 Range/Units 17:57 17:57 17:57 WBC 4.7 (3.5-10.8) 10^3/ul RBC 4.05 (4.00-5.40) 10^6/ul Hgb 13.1 (12.0-16.0) g/dl Hct 39 (35-47) % MCV 96 (80-97) fL MCH 32 H (27-31) pg MCHC 34 (31-36) g/dl RDW 14 (10.5-15) % Plt Count 223 (150-450) 10^3/ul MPV 8.1 (7.4-10.4) fL Neut % (Auto) 49.9 % Lymph % (Auto) 38.2 % [place] % (Auto) 7.7 % Eos % (Auto) 3.2 % Baso % (Auto) 1.0 % Absolute Neuts (auto) 2.3 (1.5-7.7) 10^3/ul Absolute Lymphs (auto) 1.8 (1.0-4.8) 10^3/ul Absolute Monos (auto) 0.4 (0-0.8) 10^3/ul Absolute Eos (auto) 0.1 (0-0.6) 10^3/ul Absolute Basos (auto) 0 (0-0.2) 10^3/ul Absolute Nucleated RBC 0 10^3/ul Nucleated RBC % 0 INR (Anticoag Therapy) (0.77-1.02) APTT (26.0-36.3) seconds Sodium 139 (135-145) mmol/L Potassium 3.8 (3.5-5.0) mmol/L Chloride 102 (101-111) mmol/L Carbon Dioxide 30 (22-32) mmol/L Anion Gap 7 (2-11) mmol/L BUN 15 (6-24) mg/dL Creatinine 0.86 (0.51-0.95) mg/dL Est GFR ( Amer) 89.8 (>60) Est GFR (Non-Af Amer) 74.2 (>60) BUN/Creatinine Ratio 17.4 (8-20) Glucose 80 (70-100) mg/dL Lactic Acid 1.2 (0.5-2.0) mmol/L Calcium 9.5 (8.6-10.3) mg/dL Magnesium 2.0 (1.9-2.7) mg/dL Total Bilirubin 0.40 (0.2-1.0) mg/dL AST 19 (13-39) U/L ALT 15 (7-52) U/L Alkaline Phosphatase 35 (34-104) U/L Total Creatine Kinase 77 (10-223) U/L C-Reactive Protein 56.32 H (<8.01) mg/L Total Protein 7.6 (6.4-8.9) g/dL Albumin 4.8 (3.2-5.2) g/dL Globulin 2.8 (2-4) g/dL Albumin/Globulin Ratio 1.7 (1-3) Amylase 54 (29-103) U/L Lipase 38 (11.0-82.0) U/L Beta HCG, Quant < 0.60 mIU/mL 06/02/18 06/02/18 Range/Units 17:57 19:06 WBC (3.5-10.8) 10^3/ul RBC (4.00-5.40) 10^6/ul Hgb (12.0-16.0) g/dl Hct (35-47) % MCV (80-97) fL MCH (27-31) pg MCHC (31-36) g/dl RDW (10.5-15) % Plt Count (150-450) 10^3/ul MPV (7.4-10.4) fL Neut % (Auto) % Lymph % (Auto) % [place] % (Auto) % Eos % (Auto) % Baso % (Auto) % Absolute Neuts (auto) (1.5-7.7) 10^3/ul Absolute Lymphs (auto) (1.0-4.8) 10^3/ul Absolute Monos (auto) (0-0.8) 10^3/ul Absolute Eos (auto) (0-0.6) 10^3/ul Absolute Basos (auto) (0-0.2) 10^3/ul Absolute Nucleated RBC 10^3/ul Nucleated RBC % INR (Anticoag Therapy) 1.05 H (0.77-1.02) APTT 33.3 (26.0-36.3) seconds Sodium (135-145) mmol/L Potassium (3.5-5.0) mmol/L Chloride (101-111) mmol/L Carbon Dioxide (22-32) mmol/L Anion Gap (2-11) mmol/L BUN (6-24) mg/dL Creatinine (0.51-0.95) mg/dL Est GFR ( Amer) (>60) Est GFR (Non-Af Amer) (>60) BUN/Creatinine Ratio (8-20) Glucose (70-100) mg/dL Lactic Acid 0.7 (0.5-2.0) mmol/L Calcium (8.6-10.3) mg/dL Magnesium (1.9-2.7) mg/dL Total Bilirubin (0.2-1.0) mg/dL AST (13-39) U/L ALT (7-52) U/L Alkaline Phosphatase (34-104) U/L Total Creatine Kinase (10-223) U/L C-Reactive Protein (<8.01) mg/L Total Protein (6.4-8.9) g/dL Albumin (3.2-5.2) g/dL Globulin (2-4) g/dL Albumin/Globulin Ratio (1-3) Amylase (29-103) U/L Lipase (11.0-82.0) U/L Beta HCG, Quant mIU/mL Result Diagrams: 06/02/18 17:57 06/02/18 17:57 Lab Statement: Any lab studies that have been ordered have been reviewed, and results considered in the medical decision making process. - CT abdomen/pelvis CT Interpretation Completed By: Radiologist Summary of CT Findings: No CT findings to correlate with patient's symptomatology. Specifically no. appendicitis. ED physician has reviewed this imaging report. Abdominal Pain Fem Course/Dx - Course Course Of Treatment: This patient is a 37 year old female presenting to [facility] accompanied by significant other with a chief complaint of abd pain since 2 days ago. Patient states that the pain started around 3 days ago and has gotten progressively worse, hitting its peak yesterday and easing down today. Patient states that she first noticed that she wasnt very hungry and had noticeable lack of appetite. Then, she was woken up in the middle of the night by a searing pain, starting on her left side and radiating to her right. OTC pain medication provided no relief. Until yesterday, the pain has moved to her RLQ and patient feels pain whenever she clenches her abd muscles. The pain is rated 6/10 in severity. Symptoms aggravated by nothing. Symptoms alleviated by nothing. Patient additionally reports chills, diaphoresis, nausea, vomiting. The physical exam revealed RLQ tenderness, no peritoneal sign. In the ED course the patient was given Zofran PO and Iohexol (contrast) IV. Blood work and chemistries obtained and are WNL.CT abdomen/pelvis impression: No CT findings to correlate with patient's symptomatology. Specifically no. appendicitis. This patient will be discharged. She is agreeable with this plan. - Diagnoses Provider Diagnoses: Abdominal pain Discharge - Sign-Out/Discharge Documenting (check all that apply): Patient Departure - DC Patient Received Moderate/Deep Sedation with Procedure: No - Discharge Plan Condition: Good Disposition: HOME Patient Education Materials: Acute Abdominal Pain (ED) Forms: *Work Release Referrals: Ricki Kerr MD [Primary Care Provider] - 3 Days (if not better) Additional Instructions: Your CT scan looked normal, specifically there was no sign of appendicitis. - Billing Disposition and Condition Condition: GOOD Disposition: Home - Attestation Statements Document Initiated by Whit: Yes Documenting Scribe: Tete Pal Provider For Whom Whit is Documenting (Include Credential): Robert Marr MD Scribe Attestation: Tete Holden scribed for Robert Marr MD on 06/04/18 at 0002. Scribjim Documentation Reviewed: Yes Provider Attestation: The documentation as recorded by the Tete alfonso accurately reflects the service I personally performed and the decisions made by me, Robert Marr MD Status of Scrnilesh Document: Viewed
[2018-06-02] MEDS ORDERED: Iohexol 300* (CONTRAST) 10 ML SDV IV ONE (23:42)
[2018-06-03 00:37] LABS: Urine Appearance Clear; Urine Bilirubin Negative (Negative); Urine Blood Negative (Negative); Urine Color Straw; Urine Glucose Negative (Negative); Urine Ketones Negative (Negative); Urine Nitrite Negative (Negative); Urine Protein Negative (Negative); Urine Specific Gravity 1.014 (1.010-1.030); Urine Urobilinogen Negative (Negative)
[2018-06-03 01:25] VITALS: BP 123/74
== END 2018-06-03 01:22 | disposition home or self-care (01) ==
LOC: ED 15:43
DX: R10.9 Unspecified abdominal pain (principal); R11.2 Nausea with vomiting, unspecified; R51 Headache; Z88.0 Allergy status to penicillin; F90.9 Attention-deficit hyperactivity disorder, unspecified type
CPT/HCPCS: 36415; 74177; 80053; 81003; 82150; 82550; 83605; 83690; 83735; 84702; 85025; 85610; 85730; 86140; 87040; 99283; A9270-GY; Q9967

== ENCOUNTER 2018-09-11 13:20 | Emergency (ER) | payer OTHER ==
[2018-09-11 13:36] VITALS: BP 112/77
--- NOTE | 2018-09-11 14:38 | UC ---
Respiratory Complaint HPI - HPI Summary HPI Summary: pt states she has been sick for the past 1 1/2 weeks. pt is concerned that she is coughing up blood. pt feels like she has less energy and just not feeling well denies travel outside [place]. - History of Current Complaint Chief Complaint: UCRespiratory Stated Complaint: URI Time Seen by Provider: 09/11/18 13:41 Hx Obtained From: Patient Hx Last Menstrual Period: hyster Pain Intensity: 2 Pain Scale Used: 0-10 Numeric Character: Cough: Productive Associated Signs And Symptoms: Positive: Fever, Chills, Pleuritic Chest Pain, Hemoptysis, Nasal Congestion. Negative: Dyspnea - Allergies/Home Medications Allergies/Adverse Reactions: Allergies Allergy/AdvReac Type Severity Reaction Status Date / Time atomoxetine [From Strattera] Allergy Insomnia Verified 09/11/18 13:37 benzoyl peroxide Allergy Swelling Verified 09/11/18 13:37 Of Face,Lips,& Throat dexamethasone Allergy See Comment Verified 09/11/18 13:37 lisdexamfetamine Allergy Unknown Verified 09/11/18 13:37 [From Vyvanse] Reaction Details Penicillins Allergy Anaphylatic Verified 09/11/18 13:37 Shock sertraline [From Zoloft] Allergy See Comment Verified 09/11/18 13:37 Home Medications: Home Medications busPIRone TAB* [Buspar TAB*] 5 mg PO BID 09/11/18 [History Confirmed 09/11/18] PMH/Surg Hx/FS Hx/Imm Hx - Additional Past Medical History Additional PMH: no chronic conditions Previously Healthy: Yes - Surgical History Surgical History: Yes Surgery Procedure, Year, and Place: Hysterectomy- 2017 right shoulder surg mixed connective tissue disease adhd bipolar 1 disorder - Family History Known Family History: Positive: Cardiac Disease - CAD , Hypertension - Social History Alcohol Use: Weekly Alcohol Amount: 1 beer Substance Use Type: None Smoking Status (MU): Never Smoked Tobacco - Immunization History Most Recent Influenza Vaccination: unknown Most Recent Pneumonia Vaccination: never Review of Systems All Other Systems Reviewed And Are Negative: Yes Constitutional: Positive: Fever, Chills, Fatigue ENT: Positive: Sinus Congestion. Negative: Sore Throat Respiratory: Positive: Cough, Other - +hemoptysis. Negative: Shortness Of Breath Neurological: Positive: Headache Physical Exam Triage Information Reviewed: Yes Appearance: Well-Appearing Vital Signs: Initial Vital Signs Temp 99.2 F 06/02/19 13:31 Pulse 95 09/11/18 13:31 Resp 18 09/11/18 13:31 BP 112/77 09/11/18 13:31 Pulse Ox 100 09/11/18 13:31 Vital Signs Reviewed: Yes ENT: Positive: Pharynx normal, TMs normal, Uvula midline Neck: Positive: Supple, Nontender, No Lymphadenopathy Respiratory: Positive: Lungs clear, No respiratory distress, No accessory muscle use. Negative: Crackles, Rhonchi, Stridor, Wheezing Cardiovascular Exam: Normal Neurological: Positive: Alert Respiratory Course/Dx - Course Course Of Treatment: HOWELL, hemoptysis, productive cough, chills; acute. No resp distress and afebrile today. XRAY did not show consolidation and hemoptysis likely from irritation of coughing. Will tx for presumed bacterial source but there was no pneumonia. advised pt to follow up with pcp if not improving. - Differential Dx/Diagnosis Differential Diagnosis/HQI/PQRI: Lower Resp Infection, Sinusitis Provider Diagnosis: Lower resp. tract infection Discharge - Sign-Out/Discharge Documenting (check all that apply): Patient Departure All imaging exams completed and their final reports reviewed: Yes - Discharge Plan Condition: Good Disposition: HOME Prescriptions: Azithromycin TAB* [Zithromax TAB (Z-HOLLY) 250 mg #6 tabs] 2 tab PO .TODAY, THEN 1 DAILY #1 holly Patient Education Materials: Upper Respiratory Infection (ED) Referrals: Usha WOODS,Ricki Aranda [Primary Care Provider] - Additional Instructions: it is unclear if this is a bacterial source but you and i discussed benefits and risks of starting antibiotics. - Billing Disposition and Condition Condition: GOOD Disposition: Home
== END 2018-09-11 14:45 | disposition home or self-care (01) ==
LOC: UCEAST 13:20
DX: J22 Unspecified acute lower respiratory infection (principal)
CPT/HCPCS: 71046; 99212; G0463

== ENCOUNTER 2018-11-14 20:23 | Emergency (ER) | payer OTHER ==
[2018-11-14 21:06] VITALS: BP 105/76
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
== END 2018-11-14 21:45 | disposition home or self-care (01) ==
LOC: UCEAST 20:23
DX: T23.021A Burn of unspecified degree of single right finger (nail) except thumb, initial encounter (principal); T31.0 Burns involving less than 10% of body surface; X15.0XXA Contact with hot stove (kitchen), initial encounter; Y93.G3 Activity, cooking and baking; Y92.010 Kitchen of single-family (private) house as the place of occurrence of the external cause; Y99.8 Other external cause status; Z88.0 Allergy status to penicillin
CPT/HCPCS: 99212; G0463